=== PATIENT | male | born 1965 | race Hispanic/Latino ===

== ENCOUNTER → 2017-05-26 | Outpatient (CLI) | payer SELFPAY | END | disposition home or self-care (01) | LOC: OIH 15:20 | PROVIDERS: ATTEND Family Medicine | DX: Z13.6 Encounter for screening for cardiovascular disorders (principal) | CPT/HCPCS: 75571 ==

== ENCOUNTER 2024-09-22 19:16 | Emergency (ER) | payer SELFPAY ==
[~2024-09-22] VITALS: Ht 172.7 cm; Wt 73.9 kg
[2024-09-22 19:40] LABS: IMMATURE GRANULOCYTE ABSOLUTE 0.03 K/uL (0-1); NUCLEATED RED BLOOD CELLS 0.0 % (0.0-0.19); PLATELET COUNT (AUTO) 327 K/uL (130-400); RED BLOOD CELL COUNT(AUTO) 5.98 MIL/uL (4.50-6.20); RED CELL DISTRIBUTION WIDTH 13.2 % (11.0-15.5); WHITE BLOOD COUNT (AUTO) 8.0 K/uL (4.8-10.8)
[2024-09-22 19:47] LABS: CREATININE 0.9 mg/dL (0.5-1.3); GLOMERULAR FILTR. RATE CALC 98.0 mL/min (>90); GLUCOSE,RANDOM 112.0 mg/dL (70-105); SODIUM SERUM 142.0 mmol/L (136-145); UREA NITROGEN, BLOOD 14.0 mg/dL (7-18)
[2024-09-22 19:57] LABS: CREATINE KINASE, TOTAL 120.0 U/L (21-232)
[2024-09-22] MEDS: LACTATED RINGERS 1000ML IV STA (20:19)
[2024-09-22 21:06] LABS: APPEARANCE,URINE CLEAR (CLEAR); GLUCOSE, URINE (UA) NEGATIVE (NEGATIVE); LEUKOCYTE ESTERASE ,URINE NEGATIVE Leu/uL (NEGATIVE); NITRATE,URINE NEGATIVE (NEGATIVE); OCCULT BLOOD,URINE NEGATIVE (NEGATIVE)
[2024-09-22 21:11] LABS: ADD UA MICROSCOPIC YES
--- NOTE | 2024-09-22 21:29 | HMCIMG ---
EXAM: CR Chest, 1 view. CLINICAL HISTORY: Chest pain. COMPARISON: X-ray chest dated 03/06/16. FINDINGS: The lungs show no infiltrate or other acute findings. No pleural effusion or pneumothorax. The cardiomediastinal silhouette is within normal limits. No acute osseous abnormality. IMPRESSION: No acute cardiopulmonary pathology is evident. No significant interval change from the chest x-ray dated 03/06/16. /[place]
[2024-09-22 21:53] VITALS: BP 145/95; PULSE 63; RESP 18; TEMP 98.5; O2SAT 100
--- NOTE | 2024-09-22 22:26 | ERN ---
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 Patient took his blood pressure at home and noted it was high both systolic and diastolic and took a lisinopril. He also took a nitroglycerin tablet to help with his symptoms and it did not change anything. Timing/Duration: 24 hours Allergies: Coded Allergies: No Known Allergies (Unverified Allergy, Unknown, 09/22/24) Past Medical History Past Medical History: Hypertension Past Surgical History: Other Surgical History Other: RT THUMB, COLON ABSCESS Constitutional: (+) diaphoresis EENTM: (-) eye pain, (-) blurred vision, (-) tearing, (-) double vision, (-) ear pain, (-) ear discharge, (-) nose pain, (-) nose congestion, (-) throat pain, (-) Throat swelling, (-) mouth pain, (-) tooth pain, (-) mouth swelling, (-) other documentation Respiratory: (-) cough, (-) orthopnea, (-) short of breath, (-) stridor, (-) wheezing, (-) other documentation Gastrointestinal/Abdominal: (-) nausea, (-) vomiting, (-) diarrhea, (-) abdominal pain, (-) abdominal distention, (-) constipation, (-) rectal bleeding, (-) dark stool/melena, (-) other documentation Musculoskeletal: (-) Neck pain, (-) back pain, (-) Flank Pain, (-) joint pain, (-) joint swelling, (-) muscle pain, (-) muscle stiffness, (-) gout, (-) other documentation Neuro: (+) weakness Physical Exam General Appearance: (+) no apparent distress Orientation: (+) alert Head/Face Trauma: No Eye: bilateral eye normal inspection, bilateral eye PERRL, bilateral eye EOMI Ear, Nose, Throat: (+) hearing grossly normal, (+) normal ENT inspection, (+) moist mucous membraine Neck: (+) normal inspection, (+) supple, (+) full range of motion Respiratory: (+) chest non-tender, (+) lungs clear, (+) well ventilated Heart: (+) regular, (+) no gallop Vascular: (+) no edema, (+) normal peripheral pulse Vascular Comment Radial pulses do feel a bit thready. Gastrointestinal: (+) soft, (+) non-tender, (+) bowel sound present Results Laboratory and Microbiology Lab and Micro Result Laboratory Tests Test 09/22/24 14:21 09/22/24 19:30 Urine Color COLORLESS (YELLOW) Urine Appearance CLEAR (CLEAR) Urine pH 7.0 (5.0-8.0) Urine Specific [place] 1.005 (1.001-1.031) Urine Protein NEGATIVE mg/dL (NEGATIVE) Urine Glucose (UA) NEGATIVE mg/dL (NEGATIVE) Urine Ketones NEGATIVE mg/dL (NEGATIVE) Urine Occult Blood NEGATIVE (NEGATIVE) Urine Nitrate NEGATIVE (NEGATIVE) Urine Bilirubin NEGATIVE mg/dL (NEGATIVE) Urine Urobilinogen 0.2 mg/dL (0.2-1.0) Urine Leukocyte Esterase NEGATIVE Tammy/uL Urine RBC None /HPF (0-1) Urine WBC 0-1 /HPF (0-1) Urine Bacteria None /HPF (None Seen) White Blood Count 8.0 K/uL (4.8-10.8) Red Blood Count 5.98 MIL/uL (4.50-6.20) Hemoglobin 15.5 g/dL (14.0-18.0) Hematocrit 48.0 % (42-54) Mean Corpuscular Volume 80.3 fL (79-99) Mean Corpuscular Hemoglobin 25.9 pg (27.0-33.0) L Mean Corpuscular Hemoglobin Concent 32.3 g/dL (32.0-36.0) Red Cell Distribution Width 13.2 % (11.0-15.5) Platelet Count 327 K/uL (130-400) Mean Platelet Volume 8.8 fL (7.5-10.5) Immature Granulocyte % (Auto) 0.4 % (0-1) Neutrophils (%) (Auto) 48.6 % (40.0-77.0) Lymphocytes (%) (Auto) 38.4 % (21.0-51.0) Monocytes (%) (Auto) 8.8 % (3.0-13.0) Eosinophils (%) (Auto) 2.9 % (0.0-8.0) Basophils (%) (Auto) 0.9 % (0.0-5.0) Neutrophils # (Auto) 3.9 K/uL (1.8-7.7) Lymphocytes # (Auto) 3.1 K/uL (1.0-4.8) Monocytes # (Auto) 0.7 K/uL (0.1-1.0) Eosinophils # (Auto) 0.23 K/uL (0.00-0.70) Basophils # (Auto) 0.07 K/uL (0.00-0.20) Absolute Immature Granulocyte (auto 0.03 K/uL (0-1) Nucleated Red Blood Cells 0.0 % (0.0-0.19) Sodium Level 142 mmol/L (136-145) Potassium Level 4.4 mmol/L (3.5-5.1) Chloride Level 105 mmol/L (101-111) Carbon Dioxide Level 29 mmol/L (21-32) Blood Urea Nitrogen 14 mg/dL (7-18) Creatinine 0.9 mg/dL (0.5-1.3) Glomerular Filtration Rate Calc 98 mL/min (>90) Random Glucose 112 mg/dL (70-105) H Total Calcium 9.3 mg/dL (8.5-10.1) Total Creatine Kinase 120 U/L (21-232) # Troponin I High Sensitivity 5 ng/L (4-75) B-Type Natriuretic Peptide < 5 pg/mL (0-100) MDM MDM: Differential diagnosis: Patient could be having a urinary tract infection he could be dehydrated he could be having some cardiac dysfunction or electrolyte abnormality. Rationale: Tests considered and ordered secondary to shared decision making include: Previous outside records reviewed: Old ER visits. Risk of complication and/or morbidity or mortality of patient management: None Medications-Per medication reconciliation Need for hospitalization: Patient does meet criteria for hospitalization. Need for emergency major/minor surgery: No There are no social concerns with this patient. Prescription drug management Prescriptions will include symptomatic care Patient's prior external medical records from other ER visits were reviewed by me as indicated. Prior testing and results from previous visits were reviewed. Prior tests were taken into account with medical decision making and resource utilization, independent historian/historians were used to obtain complete medical history. I independently interpreted the test that were performed, results were reviewed by me and considered findings on radiology if ordered. Patient's laboratory workup is normal. He does not have an elevated white blood cell count. His electrolytes are normal. He does not have a urinary tract infection. His chest x-ray is normal. His EKGs normal. His cardiac enzymes are normal. I explained to the patient that my best guess for his symptom complex is dehydration. He did state that he felt better with the L of IV fluids. I will discharge him home. ED Course Orders Procedure Category Date Status Time Vital Signs Per CPOE 09/22/24 Transmitted Routine 19:20 Chest 1vw RAD 09/22/24 Resulted 19:20 12 Lead Ekg Tracing- EKG 09/22/24 Logged Technical 19:20 Oxygen By Nc/Pulse Ox CPOE 09/22/24 Transmitted 19:20 Maintain Iv CPOE 09/22/24 Transmitted 19:20 Iv Insertion CPOE 09/22/24 Transmitted 19:20 Cardiac Monitoring CPOE 09/22/24 Transmitted 19:20 Pulse Oximetry With CPOE 09/22/24 Transmitted Vs And Prn 19:20 Cbc With Differential LAB 09/22/24 Complete 19:20 Activity: Br W/Brp CPOE 09/22/24 Transmitted With Assist 19:20 Creatine Kinase, Total LAB 09/22/24 Complete 19:20 Troponin I High LAB 09/22/24 Complete Sensitivity 19:20 Urinalysis Profile LAB 09/22/24 Complete 19:20 Basic Metabolic Panel LAB 09/22/24 Complete 19:20 Lactated Ringers PHA 09/22/24 Complete 1000ml (Lactated 19:34 B-Type Natriuretic LAB 09/22/24 Complete Peptide 19:34 Current Medications Medications (Trade) Dose Ordered Sig/Sania Route PRN Reason Start Time Stop Time Status Last Admin Dose Admin Lactated Ringer's (Lactated Ringers 1000ml) 1,000 ml BOLUS STAT IV 09/22/24 19:34 09/22/24 19:37 DC 09/22/24 20:19 Vital Signs Date Time Temp Pulse Resp B/P (MAP) Pulse Ox O2 Delivery O2 Flow Rate FiO2 09/22/24 21:53 98.4 63 18 145/95 100 Room Air* 0 21 09/22/24 19:18 98.1 89 18 163/91 98 Room Air DX & DISP Disposition: Discharge Departure Impression: Primary Impression: Dehydration after exertion Condition: Stable Referrals: SELF,REFERRAL (PCP) When best guess for your symptom complex is dehydration. I recommend drinking water every day to the point that your urine is clear at least once a day. Please return if your symptoms get worse to the point that you can not walk or stand or if they are accompanied by a fever nausea vomiting diarrhea. LACEY STINSON MD Sep 22, 2024 22:26
--- NOTE | 2024-09-23 08:04 | EKG ---
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
== END 2024-09-22 22:32 | disposition home or self-care (01) ==
LOC: EDH 19:16
DX: E86.0 Dehydration (principal); I10 Essential (primary) hypertension
CPT/HCPCS: 99285; 71045; 82550; 84484; 80048; 83880; 85025; 81001; 36415; 93005; J7120